=== PATIENT | male | born 1980 | race Caucasian/White ===

== ENCOUNTER 2022-04-28 21:23 | Emergency (ER) | payer MEDICAID ==
[~2022-04-28] VITALS: Ht 175.3 cm; Wt 70.3 kg
[2022-04-28 21:34] VITALS: BP 129/94
[2022-04-28 21:46] LABS: BILIRUBIN,URINE NEGATIVE (NEGATIVE); CLARITY,URINE CLOUDY; COLOR,URINE YELLOW; GLUCOSE, URINE (UA) NEGATIVE (NEGATIVE); KETONES,URINE NEGATIVE (NEGATIVE); LEUKOCYTE ESTERASE ,URINE 2+ (NEGATIVE); NITRITE,URINE NEGATIVE (NEGATIVE); PROTEIN,URINE TRACE (NEGATIVE)
[2022-04-28] MEDS ORDERED: cefTRIAXone 500 MG/5 ML ML IM ONE (22:00)
[2022-04-28] MEDS ORDERED: LIDOCAINE 1% INJ 20 ML VIAL INJ ONE (22:00)
[2022-04-28] MEDS ORDERED: LIDOCAINE 1% INJ 10 ML VIAL ONE (22:03)
[2022-04-28 22:05] LABS: BACTERIA,URINE MODERATE /HPF; RBC,URINE 25-50 /HPF; WBC,URINE TNTC /HPF
--- NOTE | 2022-04-28 22:08 | ED GU-Male ---
General Chief Complaint: - Reproductive Stated Complaint: KIDNEY INFECTION Nursing Triage Note: PT AMB TO FT 2 W C/O PENILE SWELLING & DISCHARGE, BURNING/PAIN W URINATION SX YESTERDAY. PT BELIEVES HE HAS A KIDNEY INFECTION D/T LOWER BACK PAIN X3-4 DAYS. PT A&OX4. Source: patient Exam Limitations: no limitations History of Present Illness Date Seen by Provider: Apr 28, 2022 Time Seen by Provider: 21:35 Initial Comments 41-year-old male presents with right lower back pain, swelling and pain in the left inguinal area, swelling of penis, dysuria, and penile discharge starting last night. Also reports lower abdominal pain and nausea. Denies fevers. Reports he also had 3 episodes of diarrhea yesterday. States he is in a monogamous sexual relationship, does not think that she has slept with other people. Past medical history includes gout and anxiety. Currently not taking any medications. Allergies and Home Medications Allergies Coded Allergies: No Known Drug Allergies (Unverified , 04/28/22) Patient Home Medication List Home Medication List Reviewed: Yes Doxycycline Hyclate (Doxycycline Hyclate) 100 Mg Tablet, 100 MG PO BID Prescribed by: Selene Vargas on 04/28/222218 Review of Systems Review of Systems Constitutional: see HPI Past Ebfujhm-Amgchg-Rdcnpq Hx Patient Social History Tobacco Use?: Yes Tobacco type used: Cigarettes Smoking Status: Current Everyday Smoker Use of E-Cig and/or Vaping dev: No Substance use?: No Alcohol Use?: No Immunizations Up To Date Influenza Vaccine Up-to-Date: No; Not Current First/Initial COVID19 Vaccinat: NONE Second COVID19 Vaccination Vinod: NONE Third COVID19 Vaccination Date: NONE COVID19 Vaccine Pipeline Operator: NONE Physical Exam Vital Signs Vital Signs - First Documented 04/28/22 21:34 Temp 36.8 Pulse 98 Resp 18 B/P (MAP) 129/94 (106) Pulse Ox 95 O2 Delivery Room Air Capillary Refill : Less Than 3 Seconds Height, Weight, BMI Height: '" Weight: lbs. oz. kg; 22.00 BMI Method: General Appearance: WD/WN, no apparent distress Neck: supple, normal inspection Cardiovascular: regular rate, rhythm, no edema, no gallop, no JVD, no murmur Respiratory: lungs clear, normal breath sounds, no respiratory distress, no accessory muscle use Male: normal genitalia, no hernia; No erythema; inguinal tenderness (Left, mild swelling to left inguinal area, possible lymph node palpated, no hernia palpated); No testicular tenderness Extremities: normal range of motion, normal inspection Neurologic/Psychiatric: alert, normal mood/affect, oriented x 3 Skin: normal color, warm/dry Lymphatic: inguinal node tender (L) Progress/Results/Core Measures Suspected Sepsis SIRS Temperature: Pulse: 98 Respiratory Rate: 18 Blood Pressure 129 /94 Mean: 106 Results/Orders Lab Results Laboratory Tests Test 04/28/22 21:27 04/28/22 21:36 Range/Units Lab Scanned Report Referred Lab Report [id number] Urine Color YELLOW Urine Clarity CLOUDY Urine pH 7.0 5-9 Urine Specific [place] 1.025 H 1.016-1.022 Urine Protein TRACE H NEGATIVE Urine Glucose (UA) NEGATIVE NEGATIVE Urine Ketones NEGATIVE NEGATIVE Urine Nitrite NEGATIVE NEGATIVE Urine Bilirubin NEGATIVE NEGATIVE Urine Urobilinogen 0.2 < = 1.0 MG/DL Urine Leukocyte Esterase 2+ H NEGATIVE Urine RBC (Auto) TRACE-I H NEGATIVE Urine RBC 25-50 H /HPF Urine WBC TNTC H /HPF Urine Squamous Epithelial Cells NONE /HPF Urine Crystals NONE /LPF Urine Bacteria MODERATE H /HPF Urine Casts NONE /LPF Urine Mucus NEGATIVE /LPF Urine Culture Indicated YES Urine Chlamydia trachomatis RNA Detected H Not Detected Urine Neisseria gonorrhoeae RNA Detected H Not Detected Micro Results Microbiology 04/28/22 Urine Culture - Final, Complete NO GROWTH My Orders Orders - SELENE VARGAS APRN Ua Culture If Indicated (04/28/22 21:29) Chlamydia Trachomatis Urine (04/28/22 21:51) Neis Uday Dna Urine Test (04/28/22 21:51) Ceftriaxone (Rocephin) (04/28/22 22:00) Lidocaine 1% Inj 20 Ml (Xylocaine 1% Inj (04/28/22 22:00) Urine Culture (04/28/22 21:36) Lidocaine 1% Inj 10 Ml (Xylocaine 1% Inj (04/28/22 22:03) Doxycycline Hyclate Tablet (Vibramycin T (04/28/22 22:15) Medications Given in ED Vital Signs/I&O 04/28/22 21:34 Temp 36.8 Pulse 98 Resp 18 B/P (MAP) 129/94 (106) Pulse Ox 95 O2 Delivery Room Air Capillary Refill : Less Than 3 Seconds Blood Pressure Mean: 106 Progress Note : Time: 22:07 Progress Note Patient seen and evaluated, resting in recliner, no acute distress. Based on exam and symptoms, concerned for STD, or lymphogranuloma verenum. UA, gonorrhea and chlamydia ordered. Rocephin IM ordered, and first dose of doxycycline. Discharge instructions and return precautions provided. Departure Impression Primary Impression: Penile discharge Disposition: HOME, SELF-CARE Condition: Stable Departure-Patient Inst. Decision time for Depature: 22:13 Referrals: NO,LOCAL PHYSICIAN (PCP) Primary Care Physician Patient Instructions: Sexually-Transmitted Diseases Add. Discharge Instructions: Complete full course of antibiotic as prescribed. You will receive a call regarding your gonorrhea and Chlamydia testing. There was some blood in your urine, this may be due to the infection, but monitor for increased blood, and increased lower back pain. If these occur please return. Your partner needs to be tested and treated. You must abstain from sex for at least 14 days to prevent reinfection. Return for worsening pain, inability urinate, recurrent vomiting, fever, or any other new, concerning, worsening symptoms. All discharge instructions reviewed with patient and/or family. Voiced understanding. Scripts Doxycycline Hyclate (Doxycycline Hyclate) 100 Mg Tablet 100 MG PO BID for 7 Days, #14 TAB 0 Refills Prov: SELENE VARGAS APRN 04/28/22 SELENE VARGAS APRN Apr 28, 2022 22:08
[2022-04-28] MEDS ORDERED: DOXYCYCLINE 100 MG (VIBRAMYCIN) TABLET PO ONE (22:15)
[2022-04-28] MEDS ORDERED: DOXY100T2 PO (22:19)
== END 2022-04-28 22:30 | disposition home or self-care (01) ==
LOC: ER 21:27
DX: R36.9 Urethral discharge, unspecified (principal); F17.210 Nicotine dependence, cigarettes, uncomplicated; Z28.310 Unvaccinated for COVID-19
CPT/HCPCS: 36415; 81000; 87088; 87491; 87591; 99284

== ENCOUNTER 2022-07-12 22:55 | Emergency (ER) | payer MEDICAID ==
[~2022-07-12] VITALS: Ht 175.3 cm; Wt 68.0 kg
[~2022-07-12 22:55] MED LIST: DOXY100T2 PO
[2022-07-12 23:04] VITALS: BP 120/82
[2022-07-12 23:25] LABS: BASOPHILS # (AUTO) 0.1 10^3/uL (0.0-0.1); BASOPHILS % (AUTO) 1 % (0-10); EOSINOPHILS # (AUTO) 0.4 10^3/uL (0.0-0.3); EOSINOPHILS % (AUTO) 4 % (0-10); HEMATOCRIT 41 % (40-54); LYMPHOCYTES # (AUTO) 1.7 10^3/uL (1.0-4.0); LYMPHOCYTES % (AUTO) 15 % (12-44); MEAN CORPUSCULAR HEMOGLOBIN 31 pg (25-34); MEAN CORPUSCULAR HGB CONC 34 g/dL (32-36); MEAN CORPUSCULAR VOLUME 92 fL (80-99); MEAN PLATELET VOLUME 9.1 fL (9.0-12.2); MONOCYTES # (AUTO) 0.8 10^3/uL (0.0-1.0); MONOCYTES % (AUTO) 7 % (0-12); NEUTROPHILS # (AUTO) 8.1 10^3/uL (1.8-7.8); NEUTROPHILS % (AUTO) 74 % (42-75); PLATELET COUNT 258 10^3/uL (130-400)
[2022-07-12 23:33] LABS: POTASSIUM 3.8 MMOL/L (3.6-5.0)
[2022-07-12 23:36] LABS: TOTAL PROTEIN 7.2 GM/DL (6.4-8.2)
[2022-07-12 23:37] LABS: BILIRUBIN,TOTAL 0.7 MG/DL (0.1-1.0)
[2022-07-12 23:39] LABS: CREATININE SERUM 1.1 MG/DL (0.60-1.30)
[2022-07-12 23:44] LABS: INR 1.1 (0.8-1.4); PROTHROMBIN TIME PATIENT 13.9 SEC (12.2-14.7)
[2022-07-13] MEDS ORDERED: LACTATED RINGERS 1,000 ML IV ONE (00:30)
--- NOTE | 2022-07-13 05:54 | Diagnostic Imaging Report ---
Indication: Chest pain Portable chest 11:40 PM Heart size and pulmonary vascularity are normal. Lungs are clear. There are no effusions or pneumothoraces. IMPRESSION: Negative chest Dictated by: Dictated on workstation # [id number]
--- NOTE | 2022-07-13 09:55 | ED General ---
General Chief Complaint: General Problems/Pain Stated Complaint: GROIN ISSUES|ABDOMINAL PAIN|BACK PAIN Nursing Triage Note: PT AMB TO RM 7 W MULTIPLE COMPLAINTS. PT C/O GREEN PENILE DISCHARGE, URINARY FREQUENCY/URGENCY, OCHOA, LOWER ABD PAIN, LOWER BACK PAIN, AND CP. PT A&OX4. Source of Information: Patient, Old Records Exam Limitations: No Limitations History of Present Illness Date Seen by Provider: July 12, 2022 Time Seen by Provider: 23:17 Initial Comments This 41-year-old man presents to the emergency room with numerous complaints including chest pain, back pain, lower abdominal pain, urinary frequency and urgency, headache, and green penile discharge. He was seen in this emergency room on April 28 and was treated for STIs. He was given a Rocephin injection during the ER visit and was prescribed doxycycline. Based on the filling record, it does not appear that the patient filled the doxycycline prescription. He did test positive for both gonorrhea and chlamydia, but it does not appear he received the treatment for chlamydia. I received report from nurses after triage and placed orders accordingly. His chart from prior visit was reviewed. EKG was reviewed and interpreted by me. Labs were also obtained and interpreted by me. Patient apparently became frustrated that he was asked multiple times to attempt giving a urine specimen. He became angry and left without being examined. Allergies and Home Medications Allergies Coded Allergies: No Known Drug Allergies (Unverified , 04/28/22) Patient Home Medication List Home Medication List Reviewed: Yes Doxycycline Hyclate (Doxycycline Hyclate) 100 Mg Tablet, 100 MG PO BID Prescribed by: Selene Vargas on 04/28/22 [id number] Review of Systems Review of Systems Constitutional: no symptoms reported EENTM: no symptoms reported Respiratory: no symptoms reported Cardiovascular: see HPI Genitourinary: see HPI Musculoskeletal: see HPI Skin: no symptoms reported Psychiatric/Neurological: No Symptoms Reported Hematologic/Lymphatic: No Symptoms Reported Immunological/Allergic: no symptoms reported Past Vidcvyt-Mvawiq-Suvnxd Hx Patient Social History Tobacco Use?: Yes Tobacco type used: Cigarettes Smoking Status: Current Everyday Smoker Use of E-Cig and/or Vaping dev: No Substance use?: Yes Substance type: Marijuana Alcohol Use?: No Immunizations Up To Date Influenza Vaccine Up-to-Date: No; Not Current First/Initial COVID19 Vaccinat: NONE Second COVID19 Vaccination Vinod: NONE Third COVID19 Vaccination Date: NONE COVID19 Vaccine Quality Assurance Intern: NONE Past Medical History Sexually Transmitted Disease: Yes (Gonorrhea and Chlamydia, not appropriately treated) Physical Exam Vital Signs Vital Signs - First Documented 07/12/22 23:04 Temp 36.6 Pulse 114 Resp 20 B/P (MAP) 120/82 (95) Pulse Ox 99 O2 Delivery Room Air Capillary Refill : Less Than 3 Seconds Height, Weight, BMI Height: '" Weight: lbs. oz. kg; 22.00 BMI Method: General Appearance: No Apparent Distress Progress/Results/Core Measures Suspected Sepsis SIRS Temperature: Pulse: 114 Respiratory Rate: 20 Laboratory Tests 07/12/22 23:13: White Blood Count 11.0 Blood Pressure 120 /82 Mean: 95 Laboratory Tests 07/12/22 23:13: Creatinine 1.10, INR Comment 1.1, Platelet Count 258, Total Bilirubin 0.7 Results/Orders Lab Results Laboratory Tests Test 07/12/22 23:13 Range/Units White Blood Count 11.0 4.3-11.0 10^3/uL Red Blood Count 4.49 4.30-5.52 10^6/uL Hemoglobin 14.0 13.3-17.7 g/dL Hematocrit 41 40-54 % Mean Corpuscular Volume 92 80-99 fL Mean Corpuscular Hemoglobin 31 25-34 pg Mean Corpuscular Hemoglobin Concent 34 32-36 g/dL Red Cell Distribution Width 12.5 10.0-14.5 % Platelet Count 258 130-400 10^3/uL Mean Platelet Volume 9.1 9.0-12.2 fL Immature Granulocyte % (Auto) 0 % Neutrophils (%) (Auto) 74 42-75 % Lymphocytes (%) (Auto) 15 12-44 % Monocytes (%) (Auto) 7 0-12 % Eosinophils (%) (Auto) 4 0-10 % Basophils (%) (Auto) 1 0-10 % Neutrophils # (Auto) 8.1 H 1.8-7.8 10^3/uL Lymphocytes # (Auto) 1.7 1.0-4.0 10^3/uL Monocytes # (Auto) 0.8 0.0-1.0 10^3/uL Eosinophils # (Auto) 0.4 H 0.0-0.3 10^3/uL Basophils # (Auto) 0.1 0.0-0.1 10^3/uL Immature Granulocyte # (Auto) 0.0 0.0-0.1 10^3/uL Prothrombin Time 13.9 12.2-14.7 SEC INR Comment 1.1 0.8-1.4 Activated Partial Thromboplast Time 32 24-35 SEC Sodium Level 137 135-145 MMOL/L Potassium Level 3.8 3.6-5.0 MMOL/L Chloride Level 102 98-107 MMOL/L Carbon Dioxide Level 23 21-32 MMOL/L Anion Gap 12 5-14 MMOL/L Blood Urea Nitrogen 12 7-18 MG/DL Creatinine 1.10 0.60-1.30 MG/DL Estimat Glomerular Filtration Rate 86 BUN/Creatinine Ratio 11 Glucose Level 118 H 70-105 MG/DL Calcium Level 9.0 8.5-10.1 MG/DL Corrected Calcium 9.0 8.5-10.1 MG/DL Magnesium Level 2.0 1.6-2.4 MG/DL Total Bilirubin 0.7 0.1-1.0 MG/DL Aspartate Amino Transf (AST/SGOT) 14 5-34 U/L Alanine Aminotransferase (ALT/SGPT) 14 0-55 U/L Alkaline Phosphatase 63 40-136 U/L Myoglobin 43.7 10.0-92.0 NG/ML Troponin I < 0.028 <0.028 NG/ML Total Protein 7.2 6.4-8.2 GM/DL Albumin 4.0 3.2-4.5 GM/DL My Orders Orders - DIANA ALMAGUER MD Cbc With Automated Diff (07/12/22 23:17) Magnesium (07/12/22 23:17) Chest 1 View, Ap/Pa Only (07/12/22 23:17) Ekg Tracing (07/12/22 23:17) Comprehensive Metabolic Panel (07/12/22 23:17) Myoglobin Serum (07/12/22 23:17) Protime With Inr (07/12/22 23:17) Partial Thromboplastin Time (07/12/22 23:17) O2 (07/12/22 23:17) Monitor-Rhythm Ecg Trace Only (07/12/22 23:17) Ed Iv/Invasive Line Start (07/12/22 23:17) Troponin I [place] (07/12/22 23:17) Lactated Ringers (Lr 1000 Ml Iv Solution (07/13/22 00:30) Medications Given in ED Current Medications Medications Dose Ordered Sig/Ivis Route Start Time Stop Time Status Last Admin Dose Admin Lactated Ringer's 1,000 ml @ 0 mls/hr Q0M ONCE IV 07/13/22 00:30 07/13/22 00:31 DC 07/13/22 00:33 0 MLS/HR Vital Signs/I&O 07/12/22 23:04 Temp 36.6 Pulse 114 Resp 20 B/P (MAP) 120/82 (95) Pulse Ox 99 O2 Delivery Room Air Capillary Refill : Less Than 3 Seconds Blood Pressure Mean: 95 Departure Impression Primary Impression: Chest pain Qualified Codes: R07.9 - Chest pain, unspecified Additional Impressions: Back pain Qualified Codes: M54.9 - Dorsalgia, unspecified Chlamydia infection Left against medical advice Disposition: 07 AGAINST MEDICAL ADVICE Condition: Against Medical Advice Departure-Patient Inst. Referrals: NO,LOCAL PHYSICIAN (PCP) Primary Care Physician DIANA ALMAGUER MD July 13, 2022 09:55
== END 2022-07-13 01:16 | disposition left against medical advice (07) ==
LOC: EDUNIT# 22:55 → ER 22:56
DX: A74.9 Chlamydial infection, unspecified (principal); R07.9 Chest pain, unspecified; M54.9 Dorsalgia, unspecified; F17.210 Nicotine dependence, cigarettes, uncomplicated; Z28.310 Unvaccinated for COVID-19
CPT/HCPCS: 36415; 71045; 80053; 83735; 83874; 84484; 85025; 85610; 85730; 93005; 93041